=== PATIENT | male | born 1970 | race Caucasian/White ===

== ENCOUNTER 2017-05-23 18:09 | Emergency (ER) | payer SELFPAY ==
[~2017-05-23] VITALS: Ht 182.8 cm; Wt 74.8 kg
[~2017-05-23 18:09] MED LIST: AMOXICILLIN500 MG PO; ANAPROX DS550 MG PO; CIPROFLOXACIN500 MG PO; CLARITIN10 MG PO; CLINDAMYCIN HC300 MG PO; DARVOCET N 1001 TAB PO; FLEXERIL10 MG PO; FLEXERIL5 MG PO; FLOMAX0.4 MG PO; FLONASE 0.05% 121 EA NAS; IBU-8800 MG PO; KEFLEX500 MG PO; MEDROL DOSEPAK4 MG PO; MOTRIN800 MG PO; NAPROSYN500 MG PO; NKHM; NORCO 325 MG-51 TAB PO; NORCO 5-325 TA1 EACH PO; PREDNICOT20 MG PO; TRAMADOL HCL50 MG PO; TRIMOX500 MG PO; VICODIN 5/500 505 MG PO; VICODIN ES 7501 TAB PO; ZITHROMAX Z PA250 MG PO; ZOFRAN ODT4 MG SL
[2017-05-23] MEDS ORDERED: BACTRIM DS PO (18:36)
== END 2017-05-23 18:57 | disposition home or self-care (01) ==
LOC: ED 18:09
DX: J01.90 Acute sinusitis, unspecified (principal); F17.200 Nicotine dependence, unspecified, uncomplicated

== ENCOUNTER 2017-06-18 19:56 | Emergency (ER) | payer SELFPAY ==
[~2017-06-18] VITALS: Ht 182.8 cm; Wt 74.8 kg
[~2017-06-18 19:56] MED LIST changes: +BACTRIM DS PO
[2017-06-18] MEDS ORDERED: FLONASE ALLERG9.9 ML NAS (20:50)
== END 2017-06-18 23:18 | disposition home or self-care (01) ==
LOC: ED 19:56
DX: G43.909 Migraine, unspecified, not intractable, without status migrainosus (principal); J30.2 Other seasonal allergic rhinitis; F17.200 Nicotine dependence, unspecified, uncomplicated

== ENCOUNTER 2017-06-26 20:28 | Emergency (ER) | payer SELFPAY ==
[~2017-06-26] VITALS: Ht 182.8 cm; Wt 74.8 kg
[~2017-06-26 20:28] MED LIST changes: +FLONASE ALLERG9.9 ML NAS
[2017-06-26] MEDS ORDERED: AUGMENTIN 875875 MG PO (22:00)
== END 2017-06-26 22:13 | disposition home or self-care (01) ==
LOC: ED 20:28
DX: J32.9 Chronic sinusitis, unspecified (principal); F17.200 Nicotine dependence, unspecified, uncomplicated; F10.10 Alcohol abuse, uncomplicated; Z79.899 Other long term (current) drug therapy

== ENCOUNTER → 2018-05-14 | Outpatient (CLI) | payer MEDICAID ==
[~2018-05-14] MED LIST changes: +AUGMENTIN 875875 MG PO
== END | disposition home or self-care (01) ==
LOC: RAD 14:27
DX: M47.897 Other spondylosis, lumbosacral region (principal); M25.441 Effusion, right hand; M79.641 Pain in right hand; M43.6 Torticollis

== ENCOUNTER 2019-02-21 20:50 | Emergency (ER) | payer OTHER ==
[~2019-02-21] VITALS: Wt 74.8 kg
== END 2019-02-21 23:31 | disposition home or self-care (01) ==
LOC: ED 20:50
DX: S33.5XXA Sprain of ligaments of lumbar spine, initial encounter (principal); S09.90XA Unspecified injury of head, initial encounter; T14.8XXA Other injury of unspecified body region, initial encounter; M54.2 Cervicalgia; M25.561 Pain in right knee; Z79.2 Long term (current) use of antibiotics; Z79.899 Other long term (current) drug therapy; X50.0XXA Overexertion from strenuous movement or load, initial encounter; Y93.89 Activity, other specified; Y92.89 Other specified places as the place of occurrence of the external cause; Y99.8 Other external cause status

== ENCOUNTER 2019-11-15 18:25 | Emergency (ER) | payer OTHER ==
[~2019-11-15] VITALS: Ht 182.8 cm; Wt 79.4 kg
[2019-11-15] MEDS ORDERED: CLINDAMYCIN HC300 MG PO (18:42)
== END 2019-11-15 19:10 | disposition home or self-care (01) ==
LOC: ED 18:25
DX: K08.89 Other specified disorders of teeth and supporting structures (principal); I25.2 Old myocardial infarction; F32.9 Major depressive disorder, single episode, unspecified; F17.200 Nicotine dependence, unspecified, uncomplicated; Z79.899 Other long term (current) drug therapy

== ENCOUNTER 2019-12-24 10:19 | Emergency (ER) | payer OTHER ==
[~2019-12-24] VITALS: Ht 182.8 cm; Wt 77.1 kg
[2019-12-24] MEDS ORDERED: IBUPROFEN600 MG PO (11:38)
[2019-12-24] MEDS ORDERED: AMOXICILLIN500 M2 PO (11:38)
== END 2019-12-24 12:37 | disposition home or self-care (01) ==
LOC: ED 10:19
DX: K08.89 Other specified disorders of teeth and supporting structures (principal); I25.2 Old myocardial infarction; F32.9 Major depressive disorder, single episode, unspecified; Z87.891 Personal history of nicotine dependence; Z79.899 Other long term (current) drug therapy

== ENCOUNTER 2020-02-16 00:49 | Emergency (ER) | payer OTHER ==
[~2020-02-16] VITALS: Ht 182.8 cm; Wt 74.8 kg
[~2020-02-16 00:49] MED LIST changes: +AMOXICILLIN500 M2 PO; +IBUPROFEN600 MG PO
[2020-02-16 01:53] LABS: BASO # 0.1 10*3/uL (0.0-0.1); BASO % 0.6 % (0.0-1.0); HEMATOCRIT 39.8 % (42.0-52.0); LYMPH # 3.7 10*3/uL (1.3-4.4); LYMPH % 35.1 % (27.0-41.0); MEAN CELL VOLUME 89.8 fl (80.0-94.0); MEAN CORPUSCULAR HGB 30.2 pg (27.0-31.0); MEAN CORPUSCULAR HGB CONC 33.7 g/dl (33.0-37.0); MONO # 0.9 10*3/uL (0.1-1.0); MONO % 8.4 % (3.0-9.0); NEUT # 5.9 10*3/uL (2.3-7.9); NEUT % 55.7 % (47.0-73.0); PLATELET COUNT AUTOMATED 231 10*3/uL (130-400); RED BLOOD COUNT 4.43 10*6/uL (4.50-5.90); RED CELL DISTRI WIDTH 13.1 % (0-14.5); WHITE BLOOD COUNT 10.6 10*3/uL (4.8-10.8)
[2020-02-16 02:10] LABS: ALBUMIN 3.4 gm/dl (3.1-4.5); ALKALINE PHOSPHATASE 84 U/L (45-117); BUN 10 mg/dl (7-24); CHLORIDE 108 mmol/L (98-107); CREATININE 1.02 mg/dL (0.70-1.30); POTASSIUM 4.1 mmol/L (3.5-5.1); SGOT/AST 13 IU/L (3-35); SGPT/ALT 18 U/L (12-78); SODIUM 139 mmol/L (136-145); TOTAL PROTEIN 6.8 gm/dL (6.4-8.2); TROPONIN I < 0.015 ng/ml (<0.045)
[2020-02-16 02:31] LABS: INTERNATIONAL NORM RATIO 0.9 (2.0-3.5)
[2020-02-16 04:13] LABS: BILIRUBIN NEGATIVE (NEGATIVE); BLOOD 3+ (NEGATIVE); CLARITY CLEAR (CLEAR); COLOR YELLOW (YELLOW); GLUCOSE NEGATIVE (NEGATIVE); KETONE NEGATIVE (NEGATIVE)
[2020-02-16 04:14] LABS: NITRITE NEGATIVE (NEGATIVE); UROBILINOGEN 0.2 E.U./dl (0.2-1.0)
[2020-02-16 04:15] LABS: LEUKO ESTERASE NEGATIVE (NEGATIVE)
[2020-02-16 04:21] LABS: BACTERIA TRACE; EPITHELIAL CELLS 0-2; MUCOUS 1+
[2020-02-16 04:22] LABS: URINE AMPHETAMINES < 1000 (1000ng/ml); URINE BARBITURATES < 200 (200ng/ml); URINE BENZODIAZEPINES < 200 (200ng/ml); URINE CANNABINOIDS (THC) > 50 (50ng/ml); URINE COCAINE < 300 (300ng/ml); URINE METHADONE < 300 (300ng/ml); URINE OPIATES > 300 (300ng/ml)
[2020-02-16 04:23] LABS: URINE PHENCYCLIDINE < 25 (25ng/ml)
== END 2020-02-16 04:27 | disposition short-term general hospital (02) ==
LOC: ED 00:49
PROVIDERS: Emergency Medicine
DX: I21.3 ST elevation (STEMI) myocardial infarction of unspecified site (principal); F32.9 Major depressive disorder, single episode, unspecified; F17.200 Nicotine dependence, unspecified, uncomplicated; Z79.899 Other long term (current) drug therapy

== ENCOUNTER 2021-01-16 18:40 | Emergency (ER) | payer OTHER ==
[~2021-01-16] VITALS: Wt 74.8 kg
[2021-01-16] MEDS ORDERED: AUGMENTIN 875875 MG PO (20:33)
== END 2021-01-16 20:35 | disposition home or self-care (01) ==
LOC: ED 18:40
DX: K02.9 Dental caries, unspecified (principal); K08.89 Other specified disorders of teeth and supporting structures

== ENCOUNTER 2021-10-01 10:03 | Emergency (ER) | payer OTHER ==
[~2021-10-01] VITALS: Wt 70.3 kg
[2021-10-01] MEDS ORDERED: CLEOCIN HCL150 MG PO (10:37)
== END 2021-10-01 13:15 | disposition home or self-care (01) ==
LOC: ED 10:03
DX: K08.89 Other specified disorders of teeth and supporting structures (principal); R51.9 Headache, unspecified; R11.0 Nausea; F17.200 Nicotine dependence, unspecified, uncomplicated

== ENCOUNTER 2021-11-14 02:37 | Emergency (ER) | payer OTHER ==
[~2021-11-14] VITALS: Ht 190.5 cm; Wt 74.8 kg
[~2021-11-14 02:37] MED LIST changes: +CLEOCIN HCL150 MG PO
[2021-11-14 03:00] LABS: BASO # 0.1 10*3/uL (0.0-0.1); BASO % 0.5 % (0.0-1.0); HEMATOCRIT 47.1 % (42.0-52.0); LYMPH # 2.6 10*3/uL (1.3-4.4); LYMPH % 26.3 % (27.0-41.0); MEAN CELL VOLUME 86.6 fl (80.0-94.0); MEAN CORPUSCULAR HGB 29.6 pg (27.0-31.0); MEAN CORPUSCULAR HGB CONC 34.2 g/dl (33.0-37.0); MEAN PLATELET VOLUME 9.7 fl (9.6-12.3); MONO # 0.6 10*3/uL (0.1-1.0); MONO % 5.7 % (3.0-9.0); NEUT # 6.6 10*3/uL (2.3-7.9); NEUT % 67.3 % (47.0-73.0); PLATELET COUNT AUTOMATED 259 10*3/uL (130-400); RED BLOOD COUNT 5.44 10*6/uL (4.50-5.90); RED CELL DISTRI WIDTH 12.6 % (0-14.5); WHITE BLOOD COUNT 9.8 10*3/uL (4.8-10.8)
[2021-11-14 03:11] LABS: BUN 9 mg/dl (7-24); CHLORIDE 107 mmol/L (98-107); CREATININE 1.06 mg/dL (0.70-1.30); POTASSIUM 4.2 mmol/L (3.5-5.1); SODIUM 137 mmol/L (136-145)
[2021-11-14] MEDS ORDERED: NAPROSYN500 MG PO (06:40)
[2021-11-14] MEDS ORDERED: PREDNISONE50 MG PO (06:40)
[2021-11-14 06:45] LABS: BILIRUBIN Negative (Negative); BLOOD Trace-Lysed (Negative); CLARITY Clear (Clear); COLOR Yellow (Yellow); GLUCOSE Negative (Negative); KETONE Trace (Negative); LEUKO ESTERASE Negative (Negative); NITRITE Negative (Negative)
[2021-11-14 06:57] LABS: BACTERIA 1+; MUCOUS 2+; RBC 21-30 rbc/hpf (0-2)
== END 2021-11-14 08:00 | disposition home or self-care (01) ==
LOC: ED 02:37
PROVIDERS: Emergency Medicine
DX: M54.9 Dorsalgia, unspecified (principal); Z87.442 Personal history of urinary calculi; F17.200 Nicotine dependence, unspecified, uncomplicated

== ENCOUNTER 2022-12-26 10:28 | Emergency (ER) | payer OTHER ==
[~2022-12-26 10:28] MED LIST changes: +PREDNISONE50 MG PO
== END 2022-12-26 15:26 | disposition left against medical advice (07) ==
LOC: ED 10:28
DX: R10.9 Unspecified abdominal pain (principal); Z53.21 Procedure and treatment not carried out due to patient leaving prior to being seen by health care provider